=== PATIENT | male | born 1990 | race African-American/Black ===

== ENCOUNTER 2021-05-21 20:21 | Emergency (ER) | payer OTHER ==
[~2021-05-21] VITALS: Ht 180.3 cm; Wt 74.8 kg
[2021-05-21] MEDS ORDERED: HYDROCODONE/APAP 5-325MG TABLET PO ONE (21:15)
[2021-05-21] MEDS ORDERED: CYCLOBENZAPRINE HCL 10 MG TABLET PO ONE (21:15)
[2021-05-21] MEDS ORDERED: IBUPROFEN 600 MG TABLET PO ONE (21:15)
[2021-05-21] MEDS ORDERED: NEOMY/BACITRA/POLYMYXIN B OINT UD PACKET TP ONE ×2 (21:15→21:18)
[2021-05-21] MEDS ORDERED: HYDR-4209 PO (21:17)
[2021-05-21] MEDS ORDERED: CYCL10TA9 PO (21:17)
[2021-05-21] MEDS ORDERED: IBUPROFEN 600 MG TABLET ONE (21:19)
[2021-05-21] MEDS ORDERED: CYCLOBENZAPRINE HCL 10 MG TABLET ONE (21:19)
[2021-05-21] MEDS ORDERED: HYDROCODONE/APAP 5-325MG TABLET ONE (21:19)
--- NOTE | 2021-05-21 22:20 | NUR ---
Patient discharged to home in stable condition. Written and verbal after care instructions given. Patient verbalizes understanding of instructions. Stressed follow up or return to ER for worsening s/s.
[2021-05-21 22:21] VITALS: BP 129/100
== END 2021-05-21 22:00 | disposition home or self-care (01) ==
LOC: ER 20:29
DX: S13.4XXA Sprain of ligaments of cervical spine, initial encounter (principal); S40.011A Contusion of right shoulder, initial encounter; S80.812A Abrasion, left lower leg, initial encounter; Y92.410 Unspecified street and highway as the place of occurrence of the external cause; V49.40XA Driver injured in collision with unspecified motor vehicles in traffic accident, initial encounter; G40.909 Epilepsy, unspecified, not intractable, without status epilepticus; Z79.899 Other long term (current) drug therapy
CPT/HCPCS: 73030; 73590; A4663